=== PATIENT | male | born 1970 | race Caucasian/White ===

== ENCOUNTER → 2018-09-29 11:11 | Outpatient (CLI) | payer BC, SELFPAY ==
--- NOTE | 2018-09-29 11:19 | XR_ITS ---
EXAM: XR thoracic spine 3V HISTORY: Back pain Comparison: None FINDINGS: Normal alignment. No fracture or dislocation. No lytic or blastic change. There are mild degenerative changes in the lower thoracic spine. IMPRESSION: No acute finding
--- NOTE | 2018-09-29 11:20 | XR_ITS ---
EXAM: XR lumbar spine min 4V HISTORY: Low back pain ITS.REASON: C/O ORDERING PHYSICIAN: SHARON Wilkes PATIENT AGE: 48 years COMPARISON: None FINDINGS: Normal alignment. No fracture or dislocation. No lytic or blastic change. Bridging osteophytes are present anteriorly at L2-L3 and L3-L4. There is degenerative disc disease at L5-S1. The SI joints have an unremarkable appearance. IMPRESSION: Mild degenerative changes, no acute finding
== END ==
PROVIDERS: PCP Physician Assistant; Visit Provider Physician Assistant
DX: M54.5 Low back pain (principal); M54.6 Pain in thoracic spine
CPT/HCPCS: 72072; 72110

== ENCOUNTER → 2018-10-10 07:54 | Outpatient (CLI) | payer BC, SELFPAY ==
--- NOTE | 2018-10-10 08:00 | MR_ITS ---
MR lumbar spine wo con, MR 3-d myelogram/MRCP HISTORY: LBP [id number]. No trauma. Bilateral leg pain, numbness, and tingling. ITS.REASON: ACUTE LOW BACK PAIN ORDERING PHYSICIAN: SHARON Wilkes PATIENT AGE: 48 years Comparison: X-RAY 09-29-18 TECHNIQUE: Standard multiplanar multiecho sequences are performed without contrast. 3-D MIP and myelographic images are also rendered and reviewed FINDINGS: Normal alignment. The spinal cord is at the T12-L1 level. L1-L2: Unremarkable. L2-L3: Mild facet and ligamentum hypertrophy. L3-L4: Mild facet and ligamentum flavum hypertrophy. L4-L5: Mild degenerative disc disease with bulging disc along with moderate facet and ligamentum flavum hypertrophy and minimal central disc protrusion slightly eccentric toward the left. This abuts the L5 nerve roots on both sides slightly more prominent on the left. There is narrowing of the canal at this level at 10 mm. L5-S1: Minimal bulging disc IMPRESSION: 1. There are mild degenerative changes of lumbar spine as detailed above. Please see above for description at each level. 2. L4-L5: Mild degenerative disc disease with bulging disc along with moderate facet and ligamentum flavum hypertrophy and minimal central disc protrusion slightly eccentric toward the left. This abuts the L5 nerve roots on both sides slightly more prominent on the left. There is narrowing of the canal at this level at 10 mm
--- NOTE | 2018-10-10 08:12 | XR_ITS ---
XR orbit bilateral min 4V HISTORY: History of metallic foreign body in the eyes. Clearance for MRI needed ITS.REASON: RULE OUT METAL FOREIGN BODY FOR MRI ORDERING PHYSICIAN: SHARON Wilkes PATIENT AGE: 48 years Comparison: None TECHNIQUE: AP views are obtained of the orbits with the patient looking up and down FINDINGS: No radio opaque foreign bodies evident. IMPRESSION: No radio opaque orbital foreign body identified
== END ==
PROVIDERS: PCP Physician Assistant; Visit Provider Physician Assistant
DX: M54.5 Low back pain (principal); H05.53 Retained (old) foreign body following penetrating wound of bilateral orbits
CPT/HCPCS: 70200; 72148; 76376

== ENCOUNTER → 2020-02-17 10:00 | Outpatient (CLI) | payer BC, SELFPAY ==
[2020-02-17 11:18] LABS: Chloride 108 mmol/L (98-107)
[2020-02-17 11:19] LABS: Potassium 4.5 mmoL/L (3.5-5.1); Sodium 142 mmol/L (136-145)
[2020-02-17 11:21] LABS: Alanine Aminotransferase 19 U/L (12-78); Anion Gap 10.5 mEq/L (5-15); Aspartate Amino Transferase 25 U/L (17-59); Blood Urea Nitrogen 19 mg/dl (9-20); Carbon Dioxide 28 mmol/L (22.0-30.0); Estimated Glomerular Filt Rate 89 ml/min (>60); GFR (African American) 108 ML/MIN (>60)
[2020-02-17 11:22] LABS: Albumin Level 3.8 g/dl (3.5-5.0); Albumin/Globulin Ratio 1.6 (1.1-1.8); Alkaline Phosphatase 56 U/L (38-126); Bilirubin,Total 0.5 mg/dl (0.2-1.3); Calcium 9.2 mg/dl (8.4-10.2); Chol/HDL Ratio 4.6 (1-3.5); Cholesterol 185 mg/dl (140-200); Globulin 2.4 g/dL (1.3-3.2); Glucose 96 mg/dl (74-100); HDL Cholesterol 40 mg/dl (40-60); Total Protein,Serum 6.2 g/dl (6.3-8.2); Triglycerides 105 mg/dl (30-150); VLDL Cholesterol 21 mg/dL (0-40)
[2020-02-17 11:33] LABS: Direct LDL Cholesterol 127.65 mg/dL (100-129)
[2020-02-17 14:22] LABS: Prostate Specific Ag Screen 0.4 ng/ml (0.0-4.0)
== END ==
PROVIDERS: Visit Provider Family Medicine
DX: Z00.00 Encounter for general adult medical examination without abnormal findings (principal); Z12.5 Encounter for screening for malignant neoplasm of prostate
CPT/HCPCS: 36415; 80053; 80061; G0103

== ENCOUNTER → 2020-10-29 17:46 | Outpatient (CLI) | payer BC, SELFPAY ==
[2020-10-29 19:02] LABS: Erythrocyte Sedimentation Rate 10 mm/hr (0-20)
[2020-10-29 19:53] LABS: Uric Acid 6.3 mg/dl (3.5-8.5)
[2020-10-29 19:58] LABS: C-Reactive Protein 2.1 mg/L (0-4)
[2020-10-31 11:42] LABS: RA Latex Turbid. <10.0 IU/mL (0.0-13.9)
[2020-11-01 16:40] LABS: Antinuclear Antibodies, IFA Positive (.)
[2020-11-10 10:57] LABS: Antinuclear Antibodies (ANA) NEGATIVE
== END ==
PROVIDERS: Visit Provider Family Medicine
DX: M79.641 Pain in right hand (principal)
CPT/HCPCS: 84550; 85651; 86038; 86140; 86431

== ENCOUNTER → 2021-03-14 06:53 | Outpatient (CLI) | payer SELFPAY ==
--- NOTE | 2021-03-14 07:02 | CT_ITS ---
PROCEDURE: CT HEART W CALCIUM SCORE CLINICAL HISTORY: AFIB, FAMILY HX HEART DISEASE COMPARISON: No exams were available for comparison TECHNIQUE: Axial images obtained with sagittal and coronal reformats. All CT scans at the facility use one or more dose reduction, viz: automated exposure control, ma/kV adjustment per patient size (including targeted exams where dose is matched to indication, i.e. head), or iterative reconstruction technique. FINDINGS: Coronary artery calcium score is 0. No identifiable calcific atherosclerotic plaque with very low cardiovascular disease risk IMPRESSION: No identifiable calcific atherosclerotic plaque with very low cardiovascular disease risk Dictated by: Carlos Santiago MD 03/14/2021 12:49 Carlos Santiago MD in [facility] 03/14/2021 12:49
== END ==
PROVIDERS: PCP Family Medicine; Visit Provider Family Medicine
DX: Z13.6 Encounter for screening for cardiovascular disorders (principal); Z82.49 Family history of ischemic heart disease and other diseases of the circulatory system
CPT/HCPCS: 75571